=== PATIENT | female | born 1960 | race African-American/Black ===

== ENCOUNTER 2017-03-25 10:38 | Emergency (ER) | payer BC, OTHER ==
[~2017-03-25] VITALS: Ht 167.6 cm; Wt 95.3 kg
[~2017-03-25 10:38] MED LIST: ATEN25TA PO; BUSP5TAB PO; DIPH25TA64 PO; PIRO10CA PO; TRAZ50TA15 PO; VENL75CA PO
[2017-03-25 10:47] VITALS: BP 138/86
--- NOTE | 2017-03-25 11:09 | RAD ---
Left knee, 3 views, 03/25/2017: History: Knee pain after fall No fracture or dislocation is identified. There is mild marginal spurring at the knee joint. Minimal spurring is present the patellofemoral articulation. The periarticular soft tissues are unremarkable. IMPRESSION: 1. Mild degenerative change. 2. No acute bony abnormality is detected.
[2017-03-25] MEDS ORDERED: HYDR-971 PO (12:13)
--- NOTE | 2017-03-25 12:13 | PHYS DOC ---
Past Medical History Past Medical History: Alcoholism, Arthritis, Bipolar, Depression, Hypertension , Migraines, Seizure, Other Additional Past Medical Histor: manic depressive,ex-drug abuser-no narcs Past Surgical History: , Hysterectomy, Tubal ligation Alcohol Use: Sober Drug Use: None Adult General Chief Complaint Chief Complaint: KNEE INJURY HPI HPI Patient is a 56 year old female presents emergency department stating that she fell on her left knee and January. She states that she continued to have pain and discomfort. She denies any numbness or tingling down to her lower extremities. She does state that she's been using an Timmy wrap type wrap around the knee for support which has not really helped. She's been taken ibuprofen for pain and discomfort which she states has not helped either. Patient states that she has set up a doctor's appointment with her primary care physician in which she has couple of weeks. Review of Systems Review of Systems Constitutional: Denies fever or chills [] Eyes: Denies change in visual acuity, redness, or eye pain [] HENT: Denies nasal congestion or sore throat [] Respiratory: Denies cough or shortness of breath [] Cardiovascular: No additional information not addressed in HPI [] GI: Denies abdominal pain, nausea, vomiting, bloody stools or diarrhea [] : Denies dysuria or hematuria [] Musculoskeletal: Denies back pain. C/o left knee pain Integument: Denies rash or skin lesions [] Neurologic: Denies headache, focal weakness or sensory changes [] Endocrine: Denies polyuria or polydipsia [] Allergies Allergies Allergies Coded Allergies Type Severity Reaction Last Updated Verified Penicillins Allergy Intermediate Rash 04/16/14 Yes Sulfa (Sulfonamide Antibiotics) Allergy Intermediate Rash 04/16/14 Yes codeine Allergy Intermediate Rash 04/16/14 Yes metronidazole Allergy Intermediate Rash 04/16/14 Yes morphine Allergy Intermediate Rash 04/16/14 Yes prednisone Allergy Intermediate Rash 04/16/14 Yes Physical Exam Physical Exam Constitutional: Well developed, well nourished, no acute distress, non-toxic appearance. [] HENT: Normocephalic, atraumatic, bilateral external ears normal, oropharynx moist, no oral exudates, nose normal. [] Eyes: PERRLA, EOMI, conjunctiva normal, no discharge. [] Neck: Normal range of motion, no tenderness, supple, no stridor. [] Cardiovascular:Heart rate regular rhythm Lungs & Thorax: No respiratory distress noted Skin: Warm, dry, no erythema, no rash. [] Back: No tenderness Extremities: No tenderness, no cyanosis, no clubbing, ROM intact, no edema. [] Neurologic: Alert and oriented X 3, normal motor function, normal sensory function, no focal deficits noted. [] Psychologic: Affect normal, judgement normal, mood normal. [] Current Patient Data Vital Signs Vital Signs Date Time Temp Pulse Resp B/P (MAP) Pulse Ox O2 Delivery O2 Flow Rate FiO2 03/25/17 10:47 98.3 73 18 94 Room Air 98.3 EKG EKG [] Radiology/Procedures Radiology/Procedures [][facility] [address] [place] [address] IMAGING REPORT Signed PATIENT: TERESITA MILLER ACCOUNT: [id number] : 1960 LOCATION: ER AGE: 56 SEX: F EXAM STATUS: REG ER ORD. PHYSICIAN: THUY JAMES APRN REASON: left knee pain ,pt states she fell in January, continues to have pain. PROCEDURE: KNEE LEFT 3V Left knee, 3 views, 03/25/2017: History: Knee pain after fall No fracture or dislocation is identified. There is mild marginal spurring at the knee joint. Minimal spurring is present the patellofemoral articulation. The periarticular soft tissues are unremarkable. IMPRESSION: 1. Mild degenerative change. 2. No acute bony abnormality is detected. DICTATED and SIGNED BY: JJ NICHOLS MD DATE: 03/25/17 1106 CC: THUY JAMES APRN; REY DAVID MD; NON,STAFF ~ Course & Med Decision Making Course & Med Decision Making Pertinent Labs and Imaging studies reviewed. (See chart for details) X-rays were negative. Patient does have tenderness noted on the lateral and medial side of the knee as well as posterior. Patient's negative Caitlin negative Epps negative valgus. Peripheral pulses 2+ cap refill brisk less than 2 seconds. Patient will be provided a knee immobilizer which she will be fitted for a here in the emergency department has asked to take at home as she does not want aware what she is doing errands. Instructed patient she can continue to take ibuprofen 800 mg every 8 hours with food. We'll provide her with hydrocodone for severe pain and discomfort at bedtime. Patient was instructed that the hydrocodone cause drowsiness do not take it when she needs to be at work or when she needs to be alert and oriented. Patient will be provided with orthopedic name and number to follow up with. Signs and symptoms to return back to emergency department been provided. [] Dragon Disclaimer Dragon Disclaimer This electronic medical record was generated, in whole or in part, using a voice recognition dictation system. Departure Departure Impression: Primary Impression: Left knee pain Disposition: HOME, SELF-CARE Condition: STABLE Referrals: REY DAVID MD (PCP) Patient Instructions: Knee Pain, [id number] Additional Instructions: Activity as tolerated. Continue with ibuprofen 800 mg every 8 hours with food stop taking few develop an upset stomach. Hydrocodone for severe pain and discomfort this medication should be taken when he was able to rest and relax as this will cause drowsiness. Ice packs on 20 minutes off 20 minutes several times a day. Elevation as much as possible. Follow-up with orthopedic in the next 5-7 days. Return back to emergency prior signs symptoms of become worse. Scripts Hydrocodone/Apap 5-325 (NORCO 5-325 TABLET) 1 Each Tablet 1 TAB PO PRN Q6HRS Y for PAIN, #5 TAB 0 Refills Prov: THUY JAMES APRN 03/25/17 THUY JAMES APRN March 25, 2017 12:13
[2017-03-25] MEDS ORDERED: HYDROcodone/APAP 5/325MG 1 TAB TABLET PO ONE (12:15)
== END 2017-03-25 12:24 | disposition home or self-care (01) ==
LOC: ER 10:59
DX: M25.562 Pain in left knee (principal); M19.90 Unspecified osteoarthritis, unspecified site; F31.9 Bipolar disorder, unspecified; I10 Essential (primary) hypertension; G43.909 Migraine, unspecified, not intractable, without status migrainosus; Z90.710 Acquired absence of both cervix and uterus; Z98.890 Other specified postprocedural states; Z98.51 Tubal ligation status; F10.20 Alcohol dependence, uncomplicated; Z88.0 Allergy status to penicillin; Z88.2 Allergy status to sulfonamides; Z88.5 Allergy status to narcotic agent; Z88.6 Allergy status to analgesic agent; Z88.8 Allergy status to other drugs, medicaments and biological substances
CPT/HCPCS: 29505; 73562; 99284-25

== ENCOUNTER 2017-06-05 16:47 | Emergency (ER) | payer BC ==
[~2017-06-05] VITALS: Ht 167.6 cm; Wt 103.9 kg
[~2017-06-05 16:47] MED LIST changes: +HYDR-971 PO
[2017-06-05 17:02] VITALS: BP 119/64
[2017-06-05] MEDS ORDERED: ONDANSETRON ODT 4 MG TAB.RAPDIS. PO ONE (17:15)
[2017-06-05] MEDS ORDERED: IBUPROFEN 400 MG TABLET. PO ONE (17:15)
[2017-06-05] MEDS ORDERED: ACETAMINOPHEN/CODEINE 300/30MG TABLET. PO ONE (17:15)
--- NOTE | 2017-06-05 17:30 | PHYS DOC ---
Past Medical History Past Medical History: Alcoholism, Arthritis, Bipolar, Depression, Hypertension , Migraines, Seizure, Other Additional Past Medical Histor: manic depressive,ex-drug abuser-no narcs Past Surgical History: , Hysterectomy, Tubal ligation Alcohol Use: Sober Drug Use: None Adult General Chief Complaint Chief Complaint: MECHANICAL FALL HPI HPI Patient is a 56 year old female who slipped and fell at home yesterday and felt to have right hip and has been having pain since. Patient has been able to ambulate but the pain has not resolved. Patient denies any head, neck, back injury, no abdominal injury. Patient has no other complaints Review of Systems Review of Systems Constitutional: Denies fever or chills [] HENT: No head injury no neck injury Respiratory: Denies cough or shortness of breath [] Cardiovascular: No chest wall pain GI: Denies abdominal pain : Denies dysuria or hematuria [] Musculoskeletal: Only pain is at the right hip Integument: Denies rash or skin lesions [] Neurologic: Denies headache, focal weakness or sensory changes [] Current Medications Current Medications Current Medications Medications (Trade) Dose Ordered Sig/Cadence Start Time Stop Time Status Last Admin Dose Admin Acetaminophen/ Codeine Phosphate (Tylenol #3) 1 tab 1X ONCE 06/05/17 17:15 06/05/17 17:16 UNV Ibuprofen (Motrin) 400 mg 1X ONCE 06/05/17 17:15 06/05/17 17:16 UNV Ondansetron HCl (Zofran Odt) 4 mg 1X ONCE 06/05/17 17:15 06/05/17 17:19 DC Allergies Allergies Allergies Coded Allergies Type Severity Reaction Last Updated Verified Penicillins Allergy Intermediate Rash 04/16/14 Yes Sulfa (Sulfonamide Antibiotics) Allergy Intermediate Rash 04/16/14 Yes codeine Allergy Intermediate Rash 04/16/14 Yes metronidazole Allergy Intermediate Rash 04/16/14 Yes morphine Allergy Intermediate Rash 04/16/14 Yes prednisone Allergy Intermediate Rash 04/16/14 Yes aspirin Allergy Unknown 03/25/17 Yes Physical Exam Physical Exam Constitutional: Well developed, well nourished, no acute distress, non-toxic appearance. [] HENT: Normocephalic, atraumatic, bilateral external ears normal, oropharynx moist, no oral exudates, nose normal. [] Eyes: PERRLA, EOMI, conjunctiva normal, no discharge. [] Neck: Normal range of motion, no tenderness, supple, no stridor. [] Cardiovascular:Heart rate regular rhythm, no murmur [] Lungs & Thorax: Bilateral breath sounds clear to auscultation [] Abdomen: Bowel sounds normal, soft, no tenderness, no masses, no pulsatile masses. [] Skin: Warm, dry, no erythema, no rash. [] Back: No tenderness, no CVA tenderness. [] Extremities: No tenderness, no cyanosis, no clubbing, ROM intact, no edema. [] Neurologic: Alert and oriented X 3, normal motor function, normal sensory function, no focal deficits noted. [] Psychologic: Affect normal, judgement normal, mood normal. [] Current Patient Data Vital Signs Vital Signs Date Time Temp Pulse Resp B/P (MAP) Pulse Ox O2 Delivery O2 Flow Rate FiO2 06/05/17 17:02 97.8 75 16 119/64 (82) 94 Room Air 97.8 EKG EKG [] Radiology/Procedures Radiology/Procedures XR ray preliminary read negative[] Course & Med Decision Making Course & Med Decision Making Pertinent Labs and Imaging studies reviewed. (See chart for details) [] Dragon Disclaimer Dragon Disclaimer This electronic medical record was generated, in whole or in part, using a voice recognition dictation system. Departure Departure Impression: Primary Impression: Hip injury Disposition: 01 HOME, SELF-CARE Condition: STABLE Referrals: REY DAVID MD (PCP) please follow up with your doctor in 2-4 days if your pain persists Patient Instructions: Hip Injury Additional Instructions: you may apply icy hot to the injured area twice a day for the next 3 days. Omid CABRERA MD Jun 05, 2017 17:30
--- NOTE | 2017-06-06 07:06 | RAD ---
AP pelvis and two-view right hip 06/05/2017 Clinical indication: Mechanical fall and right hip pain. Comparison: AP pelvis 02/15/2014 Findings: No acute fracture or traumatic malalignment. Joint space is maintained. No symphysis pubis widening. Impression: No acute osseous abnormality.
== END 2017-06-05 17:58 | disposition home or self-care (01) ==
LOC: ER 16:47
DX: S79.911A Unspecified injury of right hip, initial encounter (principal); M19.90 Unspecified osteoarthritis, unspecified site; F10.20 Alcohol dependence, uncomplicated; I10 Essential (primary) hypertension; G43.909 Migraine, unspecified, not intractable, without status migrainosus; Z98.51 Tubal ligation status; Z90.710 Acquired absence of both cervix and uterus; Z88.1 Allergy status to other antibiotic agents; Z88.0 Allergy status to penicillin; Z88.6 Allergy status to analgesic agent; W01.0XXA Fall on same level from slipping, tripping and stumbling without subsequent striking against object, initial encounter; Y93.89 Activity, other specified; Y92.098 Other place in other non-institutional residence as the place of occurrence of the external cause; Y99.8 Other external cause status
CPT/HCPCS: 73502; 99284; Q0162

== ENCOUNTER 2017-11-12 18:39 | Emergency (ER) | payer BC | END 2017-11-12 19:27 | disposition home or self-care (01) | LOC: ER 18:39 | DX: S39.012A Strain of muscle, fascia and tendon of lower back, initial encounter (principal); F10.20 Alcohol dependence, uncomplicated; M19.90 Unspecified osteoarthritis, unspecified site; F31.9 Bipolar disorder, unspecified; E11.9 Type 2 diabetes mellitus without complications; I10 Essential (primary) hypertension; G43.909 Migraine, unspecified, not intractable, without status migrainosus; Z90.49 Acquired absence of other specified parts of digestive tract; Z98.51 Tubal ligation status; Z88.0 Allergy status to penicillin; Z88.2 Allergy status to sulfonamides; Z88.6 Allergy status to analgesic agent; Z88.1 Allergy status to other antibiotic agents; Z88.5 Allergy status to narcotic agent; Z88.8 Allergy status to other drugs, medicaments and biological substances; W18.39XA Other fall on same level, initial encounter; Y93.89 Activity, other specified; Y92.59 Other trade areas as the place of occurrence of the external cause; Y99.8 Other external cause status | CPT/HCPCS: 99283 ==

== ENCOUNTER 2017-12-04 13:43 | Emergency (ER) | payer SELFPAY, BC ==
[2017-12-04] MEDS: HYDROcodone/APAP 5/325MG 1 TAB TABLET PO (14:33)
[2017-12-04 15:55] LABS: ADD MAN DIFF? NO
[2017-12-04 16:04] LABS: BASO % 0 % (0-3); EOS # 0.1 x10^3/uL (0.0-0.7); EOS % 1 % (0-3); HEMATOCRIT 41.4 % (36.0-47.0); HEMOGLOBIN 14.2 g/dL (12.0-15.5); LYMPH # 3.5 x10^3/uL (1.0-4.8); LYMPH % 38 % (24-48); MEAN CORPUSCULAR HEMOGLOBIN 30 pg (25-35); MEAN CORPUSCULAR HGB CONC 34 g/dL (31-37); MEAN CORPUSCULAR VOLUME 87 fL (79-100); MONO # 0.7 x10^3/uL (0.0-1.1); MONO % 8 % (0-9); NEUT # 4.8 x10^3uL (1.8-7.7); NEUT % 53 % (31-73); PLATELET COUNT 329 x10^3/uL (140-400); RED BLOOD COUNT 4.75 x10^6/uL (3.50-5.40); RED CELL DISTRIBUTION WIDTH 13.3 % (11.5-14.5); WHITE BLOOD COUNT 9.2 x10^3/uL (4.0-11.0)
[2017-12-04 16:14] LABS: ANION GAP 9 (6-14); BLOOD UREA NITROGEN 12 mg/dL (7-20); CARBON DIOXIDE 33 mmol/L (21-32); CHLORIDE 101 mmol/L (98-107); CREATININE 0.9 mg/dL (0.6-1.0); GFR 78.4; GLUCOSE 144 mg/dL (70-99); PARTIAL THROMBOPLASTIN TIME 25 SEC (24-38); POTASSIUM 3.1 mmol/L (3.5-5.1); PROTHROMBIN TIME PATIENT 12.4 SEC (11.7-14.0); SODIUM 143 mmol/L (136-145)
[2017-12-04] MEDS: POTASSIUM CHLORIDE 20 MEQ TABLET.ER. PO (16:43)
[2017-12-04] MEDS: GADOBUTROL 10 MMOL/10 ML VIAL IV (19:15)
== END 2017-12-04 21:12 | disposition home or self-care (01) ==
LOC: ER 21:12
DX: S13.4XXA Sprain of ligaments of cervical spine, initial encounter (principal); S09.90XA Unspecified injury of head, initial encounter; F07.81 Postconcussional syndrome; F10.20 Alcohol dependence, uncomplicated; M19.90 Unspecified osteoarthritis, unspecified site; F31.9 Bipolar disorder, unspecified; E11.9 Type 2 diabetes mellitus without complications; I10 Essential (primary) hypertension; Z88.0 Allergy status to penicillin; Z90.710 Acquired absence of both cervix and uterus; Z88.2 Allergy status to sulfonamides; Z88.6 Allergy status to analgesic agent; Z88.1 Allergy status to other antibiotic agents; Z88.8 Allergy status to other drugs, medicaments and biological substances; Z88.5 Allergy status to narcotic agent; Z98.51 Tubal ligation status; W00.0XXA Fall on same level due to ice and snow, initial encounter; Y93.89 Activity, other specified; Y92.89 Other specified places as the place of occurrence of the external cause; Y99.8 Other external cause status
CPT/HCPCS: 36415; 70450; 70544; 70553; 72125; 80048; 85025; 85610; 85730; 96374; 96375; 99285-25; A9585; J2060